=== PATIENT | female | born 1970 | race Caucasian/White ===

== ENCOUNTER 2018-05-14 17:16 | Emergency (ER) | payer OTHER ==
[2018-05-14] MEDS ORDERED: Nitroglycerin 2% Ointment 1 INCH/1 GM Packet ONE (17:43)
[2018-05-14 17:47] LABS: #Basophils 0.1 thou/uL (0.0-0.2); #Eosinphils 0.1 thou/uL (0.0-0.7); #Lymphocytes 2.5 thou/uL (1.20-3.40); #Monocytes 0.6 thou/uL (0.11-0.59); %Basophils 1.3 % (0.0-1.0); %Eosinophils 1.9 % (0.0-10.0); %Monocytes 7.9 % (0.0-10.0); %Neutrophils 54.9 % (42.0-75.0); Hemoglobin 13.7 g/dL (12.0-16.0); Mean Corpuscular HGB CONC 35.2 g/dL (32.0-36.0); Mean Corpuscular Hemoglobin 32.3 pg (27.0-31.0); Mean Corpuscular Volume 91.7 fL (78.0-98.0); Mean Platelet Volume 6.5 fL (7.4-10.4); Platelet Count 251 thou/uL (130-400); RBC Distribution Width 10.5 % (11.5-14.5); Red Blood Cell (RBC) Count 4.24 mill/uL (4.20-5.40); White Blood Cell (WBC) Count 7.2 thou/uL (4.8-10.8)
--- NOTE | 2018-05-14 18:05 | RAD ---
CHEST ONE VIEW: HISTORY: Chest pain. COMPARISON: None. FINDINGS: The lungs are clear. No pneumothorax or effusion. The cardiac silhouette and mediastinal contour ar e within normal limits. Low grade dextroscoliosis at the thoracolumbar junction. IMPRESSION: No acute intrathoracic abnormality. POS: [facility]
[2018-05-14 18:07] LABS: CKMB 1.9 ng/mL (0-6.6); Troponin I Less than 0.010 ng/mL (< 0.028)
[2018-05-14 18:41] LABS: ALT (SGPT) 20 U/L (8-55); AST (SGOT) 17 U/L (5-34); Albumin 4.1 g/dL (3.5-5.0); Alkaline Phosphatase 50 U/L (40-150); Anion Gap 12 mmol/L (10-20); BUN (Urea Nitrogen) 14 mg/dL (7.0-18.7); Bilirubin, Total 0.3 mg/dL (0.2-1.2); CK (CPK) 89 U/L (29-168); Calc. Creatinine Clearance 0 mL/min (70-130); Calcium 9.5 mg/dL (7.8-10.44); Carbon Dioxide 26 mmol/L (22-29); Chloride 106 mmol/L (98-107); Estimated GFR-MDRD 84; Globulin 2.8 g/dL (2.4-3.5); Glucose 100 mg/dL (70-105); Lipase 40 U/L (8-78); Potassium 3.9 mmol/L (3.5-5.1); Protein, Total 6.9 g/dL (6.0-8.3); Sodium 140 mmol/L (136-145)
== END 2018-05-14 18:50 | disposition left against medical advice (07) ==
LOC: SCSER 17:16
DX: R07.89 Other chest pain (principal); E03.9 Hypothyroidism, unspecified; Z79.899 Other long term (current) drug therapy
CPT/HCPCS: 71045; 80053; 82550; 82553; 83690; 84443; 84484; 85025; 93005

== ENCOUNTER 2019-02-14 08:52 | Observation (INO) | payer OTHER ==
--- NOTE | 2019-02-14 09:26 | RAD ---
Exam: Chest one view HISTORY:Chest pain Comparison: 05/14/2018 FINDINGS: Cardiac silhouette: Normal Pulmonary vessels: Normal Costophrenic angles: Clear LUNGS: No masses or consolidation. Pneumothorax: None Osseous abnormalities: None IMPRESSION: No acute cardiopulmonary process.
[2019-02-14] MEDS ORDERED: Aspirin 325 MG TAB ONE (09:43)
[2019-02-14 09:46] LABS: #Basophils 0.1 thou/uL (0.0-0.2); #Eosinphils 0.1 thou/uL (0.0-0.7); #Lymphocytes 1.9 thou/uL (1.20-3.40); #Monocytes 0.4 thou/uL (0.11-0.59); %Basophils 1.2 % (0.0-1.0); %Eosinophils 2.1 % (0.0-10.0); %Lymphocytes 34.4 % (21.0-51.0); %Monocytes 7.9 % (0.0-10.0); %Neutrophils 54.4 % (42.0-75.0); Hemoglobin 14.3 g/dL (12.0-16.0); Mean Corpuscular Volume 96.7 fL (78.0-98.0); Mean Platelet Volume 7.5 fL (7.4-10.4); Platelet Count 245 thou/uL (130-400); RBC Distribution Width 11.1 % (11.5-14.5); Red Blood Cell (RBC) Count 4.49 mill/uL (4.20-5.40); White Blood Cell (WBC) Count 5.5 thou/uL (4.8-10.8)
[2019-02-14 10:18] LABS: ALT (SGPT) 29 U/L (8-55); AST (SGOT) 18 U/L (5-34); Albumin 4.5 g/dL (3.5-5.0); Alkaline Phosphatase 54 U/L (40-150); BUN (Urea Nitrogen) 13 mg/dL (7.0-18.7); Bilirubin, Total 0.6 mg/dL (0.2-1.2); CK (CPK) 72 U/L (29-168); Calc. Creatinine Clearance 0 mL/min (70-130); Calcium 9.6 mg/dL (7.8-10.44); Carbon Dioxide 24 mmol/L (22-29); Chloride 105 mmol/L (98-107); Estimated GFR-MDRD 80; Glucose 86 mg/dL (70-105); Magnesium 2.2 mg/dL (1.6-2.6); Potassium 3.7 mmol/L (3.5-5.1); Protein, Total 7.5 g/dL (6.0-8.3); Sodium 140 mmol/L (136-145)
[2019-02-14 10:25] LABS: Anion Gap 15 mmol/L (10-20)
[2019-02-14] MEDS ORDERED: Morphine 4 MG/ML VIAL ONE ×2 (12:28→12:48)
[2019-02-14] MEDS ORDERED: Acetaminophen 325 MG TAB PO PRN ×2 (13:33→16:03)
[2019-02-14] MEDS ORDERED: Ondansetron ODT 4 MG TAB SL PRN (13:33)
[2019-02-14] MEDS ORDERED: Ondansetron PF 4 MG/2 ML Vial IVP PRN (13:33)
[2019-02-14 15:11] LABS: Troponin I Less than 0.010 ng/mL (< 0.028)
[2019-02-14] MEDS ORDERED: Nitroglycerin 0.4 MG TAB (25 Tab Bottle) PO PRN (16:03)
[2019-02-14 16:08] VITALS: BMI 24.7
[2019-02-14 16:38] VITALS: BP 110/74; TEMP 98
--- NOTE | 2019-02-14 17:27 | SS ---
PRIMARY CARE PHYSICIAN: Irwin Santana MD CHIEF COMPLAINT: Chest pain. HISTORY OF PRESENT ILLNESS: Ms. Cox is a very pleasant 48-year-old female who came to the emergency room after she started having chest pain while she was driving to work. She says it was in the center of her chest; during the time, she got dizzy and felt lightheaded, and she says that she could barely see. She says it is very similar to pain that she has had in the past when she had coronary vasospasms. She says that she had a second episode, and these episodes have been coming more frequently in the last week and as a result, she called her , and he brought her to the emergency room here. While in the emergency room, she had another episode which lasted for quite some time, and for this reason, the plan was to place her in observation. The patient's troponins were negative, and there were no significant EKG changes. Her tow picker is Dr. Hammond and unfortunately, he does not have privileges at this facility. Currently, the patient's symptoms have resolved. REVIEW OF SYSTEMS: CONSTITUTIONAL: There have been no fevers or chills. No night sweats. No weight loss. HEENT: No headaches. No dizziness. No visual changes. No sore throat or rhinorrhea. NECK: No neck pain. No adenopathy. PULMONARY: No hemoptysis, no cough, no wheezing. CARDIOVASCULAR: As in History of Present Illness. GASTROINTESTINAL: There has been no abdominal pain. No nausea. No vomiting. No change in bowels. GENITOURINARY: No urinary frequency or hematuria. No hesitancy. NEUROLOGIC: No focal weakness or numbness. No seizures. PSYCHIATRIC: She denies any stress. She says her current job is her least stressful job that she has ever had. She denies any depression symptoms. SKIN AND INTEGUMENT: No skin changes and no rashes. PAST MEDICAL HISTORY: Significant for hypothyroidism, asthma, and coronary vasospasms. She says was diagnosed by cardiac catheterization about [address] Hammond. PAST SURGICAL HISTORY: She has a history of breast implants, hysterectomy, ovarian cyst, appendectomy, and a previous cardiac catheterization. ALLERGIES: TO LEVAQUIN. FAMILY HISTORY: Significant for father who at age 49 due to coronary artery disease, but he was a heavy smoker. Also, had a history of grandmother with breast cancer. CURRENT MEDICATIONS: Include: 1. Vitamin C. 2. PROCTOLOGIST Thyroid 60 mg daily. 3. Vitamin C 1000 mg daily. 4. Singulair 10 mg daily. 5. Potassium chloride 10 mEq daily. 6. Symbicort 160/4.5 two puffs twice a day. PHYSICAL EXAMINATION: GENERAL: She is alert and oriented. She appears to be in no acute distress. She is well developed and well nourished. VITAL SIGNS: Blood pressure was ranging from 118 to 144/80; heart rate in the 70s; respiratory rate of 16; and temperature, she is afebrile. HEENT: Pupils are equal, round, and reactive to light. Extraocular muscles are intact. Her sclerae anicteric. Throat, there is no erythema, no exudates. NECK: No adenopathy. No bruits. LUNGS: Clear to auscultation. There is no wheezing. No rales. No rhonchi. CARDIOVASCULAR: She has a normal S1, S2. There is no S3 or S4. No murmurs, clicks, or rubs. ABDOMEN: Soft. It is nontender and nondistended. Positive for bowel sounds. There is no rebound, no guarding. EXTREMITIES: There is no calf tenderness. No joint effusions. NEUROLOGIC: Her cranial nerves are intact. Muscle strength is 5/5. SKIN AND INTEGUMENT: There are no skin changes. No rashes. DIAGNOSTIC STUDIES: LABORATORY RESULTS: On her CBC; white blood cell count 5.5, hemoglobin 14.3, hematocrit is 43.4, and platelet count is 245. D-dimer was less than 0.27. Sodium was 140, potassium 3.7, chloride is 105, CO2 is 24, BUN of 13, creatinine 0.77, and glucose is 86. Troponin is less than 0.01. IMAGING STUDIES: Her EKG shows sinus rhythm with some nonspecific ST-wave changes. Chest x-ray was essentially negative with no airspace disease and no acute pulmonary process. Lab work was reviewed, and the chest x-ray and EKG are by my reading. ASSESSMENT: This is a pleasant 48-year-old female who presents with chest pain, which is likely due to coronary vasospasms. Unfortunately, her blood pressure is running on the lower side, and therefore, I do not feel comfortable placing her on a calcium channel flor[place] or beta [place] at this time. She has been instructed in the past to use sublingual nitroglycerin when this occurred, but to be sure to be lying down during the administration of the nitroglycerin. I have given the patient the option to either stay in the hospital and be monitored overnight, and we could get the records from Dr. Hammond's office and see if any further workup needs to be done or I think it would be safe for her also to be discharged home on an aspirin a day as well as her magnesium supplementation and see Dr. Hammond in the outpatient setting as well. Job ID: [id number]
[2019-02-14] MEDS ORDERED: Atorvastatin Calcium 20 MG TAB PO SCH (21:00)
--- NOTE | 2019-02-15 08:26 | CON ---
DATE OF CONSULTATION: 02/14/2019 INDICATION FOR CONSULTATION: A 48-year-old female with a history of documented coronary vasospasms who presented today with chest pain. She had no significant EKG changes. Enzymes were unremarkable. She was on her way to work this morning when she noticed she had some heaviness and then became very significant, and had tightness and pain in her chest. She presented to the emergency room. She has been seeing Dr. Hammond in the past and he has given her a Ranexa, but she did not have a full dose. She was taking 500 mg twice a day and apparently the medication was stopped and I assume it was because she was not getting any significant results from it. She has been on calcium blockers for her discomfort. Her blood pressure is on the low side, but during the cardiac catheterization, she does remember getting nitroglycerin and had complete resolution of her discomfort from the vasospasm. PAST MEDICAL HISTORY: Please refer to the notes dictated by my nurse practitioner, Jay Fermin. SOCIAL HISTORY: Please refer to the notes dictated by my nurse practitioner, Jay Fermin. FAMILY HISTORY: Please refer to the notes dictated by my nurse practitioner, Jay Fermin. REVIEW OF SYSTEMS: Please refer to the notes dictated by my nurse practitioner, Jay Fermin. MEDICATIONS: Please refer to the notes dictated by my nurse practitioner, Jay Fermin. ALLERGIES: PLEASE REFER TO THE NOTES DICTATED BY MY NURSE PRACTITIONER, JAY FERMIN. PHYSICAL EXAMINATION: GENERAL: Reveals a well-developed, well-nourished female, who is in no acute distress at this time. She denies any chest pain. Enzymes and EKG are unremarkable. VITAL SIGNS: Show a blood pressure of 110/74. She is afebrile. Heart rate 68, respiratory rate 16. HEENT: Show the head to be normocephalic and atraumatic. Carotid pulses are present. There are no bruits. CHEST: Clear to auscultation. CARDIOVASCULAR: Reveals a regular rate and rhythm with normal S1, S2. No S3 or S4. There are no significant murmurs, heaves, thrills, bruits, or rubs. ABDOMEN: Soft and nontender. Positive bowel sounds are present. EXTREMITIES: Show no clubbing, cyanosis, edema. Pedal pulses are present. NEUROLOGIC: She is fully intact. She has normal strength and tone. SKIN: Warm and dry. LABORATORY DATA: Show a sodium of 140, creatinine is 0.77. Her cardiac enzymes are unremarkable. Her WBC is 5.5, hemoglobin 14.3. EKG is unremarkable. There is no indication of ST-segment changes. Even when she was admitted to the emergency room, she had a normal sinus rhythm with no acute ST-segment changes. At this time, she is pain free. She has been given diltiazem as well as I believe, she is on Tylenol, Zofran, aspirin, and atorvastatin. IMPRESSION: 1. Vasospastic coronary artery disease, which has been documented in the past by cardiac catheterization, relieved by nitroglycerin. She has been placed on calcium blockers in the past, this seems to help some, but continues to have breakthrough episodes. I have suggested she try the Ranexa again at a 1000 mg twice a day and see if this relieve some of the symptoms. Otherwise, I would suggest she also try in the emergency cases, take at least a half of nitroglycerin sublingual and see if this alleviates some of the vasospasms. I would certainly have a low dose of nitroglycerin due to her hypotension. I would be more than happy to continue to follow the patient with you, but at this time she is stable and could be discharged to home, and we can treat this as an outpatient since she is completely asymptomatic at that time and has no EKG changes and negative enzymes. We would continue her on the diltiazem as well as p.r.n. nitroglycerin and also resume Ranexa at a 1000 mg twice a day. Job ID: [id number]
--- NOTE | 2019-02-15 08:26 | CON ---
DATE OF CONSULTATION: PRIMARY PHOTOGRAPHIC COLORIST: Dr. Hammond at [facility]. The patient's primary director radio news here is going to be Dr. Iris Farrar. REASON FOR CARDIOLOGY CONSULT: Chest pain and history of coronary vasospasm. HISTORY OF PRESENT ILLNESS: Ms. Cox is a 48-year-old female with significant history of coronary vasospasm since 2018, hypothyroidism, asthma, and sinus. The patient has a cardiac workup for history of cardiac spasm for [address] Hammond. She had a cardiac cath in August 2018, which shows normal coronary arteries with a cardiac spasm, which improved with nitroglycerin injection during the cardiac cath per the patient. The patient also had echocardiogram done, which is normal, and carotid Dopplers done, which is normal per the patient and family member. After she had a cardiac catheterization in August 2018, she had a really mild cardiac spasm, and then however last 3 weeks, she started having more severe heaviness, longer cardiac spasm symptoms such as heaviness in the chest and shortness of breath for couple of minutes, usually which improve with deep breath, breathing technique; however today, her symptom last at least 20 minutes and her usual breathing technique did not work for her. She decided to present to the emergency department for further evaluation and treatment. At the ER, she had 2 episodes of cardiac spasm with heaviness in the chest and shortness of breath and dizziness and tingling all over the body for 45 to 1 hour twice. After she received a total two doses of , her symptom subsided. Since the patient was transferred to observation unit, she has mild symptoms such as heaviness and shortness of breath and even during the Cardiology consult. She tried nitroglycerin sublingual before for the cardiac spasm, which caused her blood pressure very low, severe hypotensive, and she felt almost passing out, so she was told not to take the nitroglycerin unless she has really severe symptoms. She tried Ranexa 500 mg twice a day, which stopped in June 2018 because the medication did not improve her symptoms. Her blood pressure during that time was being in 100 to 120s over 70s to 80s with heart rate 60s to 90s. She also prescribed diltiazem 30 mg twice a day as needed for cardiac vasospasm. She tried today, but did not work well for her. During the initial Cardiac consult assessment, the patient denied dizziness, lightheadedness, or shortness of breath. She continued having heaviness in the chest, the mediastinal area, but she denied any tingling all over her body. PAST MEDICAL HISTORY: Hypothyroidism, cardiac spasm since 2018, sinus, and asthma. PAST SURGICAL HISTORY: Breast implants, hysterectomy, ovary removed, appendectomy, right foot surgery when she was 19 years old, and cardiac catheterization in August 2018. FAMILY HISTORY: The patient's father due to the CVA at age of 49 and he was very heavy smoker. The patient's mother has a history of hypertension, which is managed by exercise diet, but no medication. SOCIAL HISTORY: The patient is . She has 2 children, who are living well. She denied tobacco or illicit drug abuse. She drinks 1 or 2 times per month, 1 to 2 glasses of wine. She does not do exercise. She drinks 2 cups of caffeine in the morning. ALLERGIES: SHE IS ALLERGIC TO LEVOFLOXACIN, WHICH CAUSES ANGIOEDEMA. MEDICATIONS: Current medications; 1. TEST CARRIER Thyroid 60 mg once a day. 2. once a day. 3. Vitamin C. 4. Vitamin D. 5. Vitamin B12. 6. Calcium. 7. Singulair 10 mg once a day. 8. Potassium chloride 10 mEq once a day. 9. Symbicort 2 puffs twice a day at this moment. REVIEW OF SYSTEMS: A 12-point review of systems negative unless otherwise mentioned in HPI. PHYSICAL EXAMINATION: VITAL SIGNS: Blood pressure 110/74; heart rate 68, sinus rhythm; temperature 98.0; respiratory rate 16; O2 saturation 98% on room air. GENERAL: The patient is alert and oriented x4, not in acute distress. HEENT: Head, normocephalic and atraumatic. Eyes, extraocular muscle movement intact. ENT and mouth, oral and nasal mucosa moist without lesions. NECK: No JVD. Normal range of motion. RESPIRATORY: Clear to auscultate bilaterally. No wheezing, rales, or rhonchi noted. CARDIOVASCULAR: Regular rate and rhythm. Normal S1 and S2. There are no S3 or S4. No significant murmur, heaves, or thrill noted. EXTREMITIES: 2+ pulses in bilateral upper and lower extremities. No edema in the lower extremities. ABDOMEN: Soft, nontender. No mass to palpitate. Bowel sounds are present. SKIN: Warm and dry. No lesion, rash, or erythema noted. MUSCULOSKELETAL: The patient able to move all extremities without difficulty. The patient denied claudication. NEUROLOGIC: The patient is alert and oriented x4, nonfocal. PSYCHIATRIC: The patient's mood is appropriate. LABORATORY DATA: WBC 5.5, hemoglobin 14.3, hematocrit 43.4, platelet 245. D-dimer is less than 0.27. Sodium 140, potassium 3.7, BUN 13, creatinine 0.77. AST 18, ALT 29. Troponin is negative x2. IMAGING STUDIES: Chest x-ray shows no acute cardiopulmonary process. A 12-lead EKG at the ER shows sinus rhythm and heart rate [address]-segment changes or T-wave inversion. ASSESSMENT AND PLAN: 1. Cardiac vasospasm. She continued having mild heaviness to the mediastinal area at this moment, which is managed to improve with her own breathing techniques at this moment. She had a nitroglycerin sublingual for really severe symptoms and the patient's vital signs are stable at this moment. If the patient's vital signs are stable, we might like to resume diltiazem or verapamil for this patient. The patient's cardiac catheterization in August [address] Hammond was normal. We are getting the patient's medical record from Dr. Hammond's office at this moment. 2. Asthma. The patient's respiratory status is stable with room air. 3. Hypothyroidism, which is deferred to the primary care doctor this Tuesday. Thank you very much for Cardiology Service to participate in the care of this patient. We will follow along the patient's care team and make further recommendations as appropriate. Job ID: [id number]
[2019-02-15] MEDS ORDERED: Aspirin 325 mg Enteric Coated Tablet PO SCH (09:00)
--- NOTE | 2019-02-17 09:39 | EKG ---
Test Reason : Blood Pressure : / mmHG Vent. Rate : 072 BPM Atrial Rate : 072 BPM P-R Int : 108 ms QRS Dur : 080 ms QT Int : 396 ms P-R-T Axes : 027 022 052 degrees QTc Int : 433 ms Sinus rhythm with short LA Otherwise normal ECG Confirmed by CLARISSA DUFFY ([id number]), sound editor JAIMIE VALENTINE ([id number]) on 02/17/2019 9:39:25 AM Referred By: Confirmed By:CLARISSA DUFFY
== END 2019-02-14 18:27 | disposition home or self-care (01) ==
LOC: ERS 08:52 → 2SW 13:42
PROVIDERS: ADMIT Internal Medicine; ATTEND Internal Medicine
DX: I25.111 Atherosclerotic heart disease of native coronary artery with angina pectoris with documented spasm (principal); J45.909 Unspecified asthma, uncomplicated; E03.9 Hypothyroidism, unspecified; Z98.890 Other specified postprocedural states; Z90.710 Acquired absence of both cervix and uterus; Z88.1 Allergy status to other antibiotic agents; Z79.899 Other long term (current) drug therapy
CPT/HCPCS: 27840; 36415; 71045; 80053; 82550; 83735; 84484; 85025; 85379; 93005; 96374; G0378; J2270